=== PATIENT | male | born 1990 | race Two or more races ===

== ENCOUNTER 2024-08-21 09:35 | Outpatient (OUT) | payer BC, SELFPAY ==
--- NOTE | 2024-08-21 10:20 | XR_ITS ---
[facility] [place] [id number] Patient Name: SHON GARCIA MRN: [id number] date: 1990 Sex: M Assigned Patient Location: RAD Current Patient Location: [facility] Accession/Order Number: [id number] Exam Date: 08/21/2024 14:14 Report Date: 08/21/2024 14:15 At the request of: CATHIE ALTAMIRANO MD Procedure: XR lumbar spine min 4V LUMBAR SPINE - 5 views CLINICAL HISTORY: Back Pain M54.9 COMPARISON: None FINDINGS: Vertebral body heights appear maintained. Endplate degenerative changes with mild disc space at L5-S1. Facet joints appear unremarkable. XR/XR lumbar spine min 4V IMPRESSION: MILD DEGENERATIVE CHANGES INVOLVING THE LUMBAR SPINE WITH MILD DISC SPACE NARROWING L5-S1. Impression dictated by: Tony Acevedo Jr., D.O.08/21/2024 2:15 PM Dictation Location: [place] [address] Electronically authenticated by: [id number] Y Date: 08/21/2024 14:15
== END 2024-08-21 09:36 | disposition home or self-care (01) ==
LOC: RAD 09:43
PROVIDERS: PCP Family Medicine; Visit Provider Family Medicine
DX: M54.9 Dorsalgia, unspecified (principal); M51.369 Other intervertebral disc degeneration, lumbar region without mention of lumbar back pain or lower extremity pain
CPT/HCPCS: 72110